=== PATIENT | female | born 1950 | race Caucasian/White ===

== ENCOUNTER 2021-02-13 19:54 | Emergency (ER) | payer OTHER ==
[~2021-02-13] VITALS: Ht 154.9 cm; Wt 62.6 kg
--- NOTE | ~2021-02-13 | EMS ---
[address] [address] EMS Patient Care Report Name: EDDIE FERRIS Room #: PRE M.R.#: [id number] Admission: Attend Phys: Discharge: Date of : 50 Report #: [id number] THIS REPORT FOR: //name// Report Transmitted: 02/13/2021 19:37 EMS Care Summary [facility] MED-ACT Incident [id number] @ 02/13/2021 19:15 Incident Location [address] [place] [address] [place] [address] Patient EDDIE FERRIS Female, 70 Years 1950 Patient Address [address] [address] Patient History None Reported, Patient Allergies No known allergies, Patient Medications None Reported, Chief Complaint Abdominal pain Disposition Transported No Lights/[place] Reason Heart Problems/AICD Transported To [facility] Narrative History- Pt is found sitting at the dining room table and is being evaluated by FD. Pt is alert and does not appear to be in any distress. Pt explains that she just got in from [place] yesterday and before dinner tonight she had a sudden onset of abdominal pain. This was followed by the pt becoming pale and [address] [address] EMS Patient Care Report Name: EDDIE FERRIS Room #: [facility] Dixon#: [id number] Admission: Attend Phys: Discharge: Date of : 50 Report #: [id number] diaphoretic and states that she felt "henson". Now the pt states that her abdominal pain is gone and she feels normal and has no complaints. Pt denies ever having chest pain, shortness of breath, nausea or vomiting. Treatment- Vitals. 12 lead. IV. Pt is transported to [facility] and moved to the bed by sheet drag. Report given to the RN. Initial Vitals @PTAMI Suspected: false @19:41P: 56,R: 16,BP: 114/67,SpO2: 96, @19:48P: 57,R: 16,BP: 104/66,SpO2: 96, @PTAP: 68,R: 16,BP: 83/57,Temp: 98F,Glucose: 149,CO: 1,SpO2: 97, @PTAP: 69,R: 16,BP: 88/58,Pain: 2/10,GCS: 15,SpO2: 99,Revised Trauma: 11, Assessments @19:47MENTAL:Person Oriented,Time Oriented,Place Oriented,Event Oriented,SKIN:HEENT:Head/Face: No Abnormalities,Eyes: No Abnormalities,Neck/Airway: No Abnormalities,LUNG SOUNDS:General: No Abnormalities,ABDOMEN:General: No Abnormalities,PELVIS//GI:EXTREMITIES:Left Arm: No Abnormalities,Right Arm: No Abnormalities,Left Leg: No Abnormalities,Right Leg: No Abnormalities,PULSE:Radial: 2+ Normal,NEURO:No Abnormalities, Impression Hypotension Procedures @HKZ25-Nvmo ECGResponse: UnchangedSucceeded@19:41Saline Lock 10cc (18 ga) Site: Antecubital-RightResponse: UnchangedSucceeded Timeline UNIT LEADER,12-Lead ECG,Response: UnchangedSucceeded, UNIT LEADER,BP: / M,PULSE: ,RR: R,SPO2: Ox,ETCO2: ,BG: ,PAIN: ,GCS: , UNIT LEADER,BP: 83/57 M,PULSE: 68,RR: 16 R,SPO2: 97 Ox,ETCO2: ,B,PAIN: ,GCS: , UNIT LEADER,BP: 88/58 M,PULSE: 69,RR: 16 R,SPO2: 99 Ox,ETCO2: ,BG: ,PAIN: 2,GCS: 15, 19:14,Call Received 19:14,Psap Call 19:15,Dispatched 19:16,En Route 19:28,On Scene 19:32,At Patient 19:41,Saline Lock 10cc 18 ga Site: Antecubital-Right,Response: UnchangedSucceeded, 19:41,BP: 114/67 M,PULSE: 56,RR: 16 R,SPO2: 96 Ox,ETCO2: ,BG: ,PAIN: ,GCS: , 19:41,Depart Scene 19:48,BP: 104/66 M,PULSE: 57,RR: 16 R,SPO2: 96 Ox,ETCO2: ,BG: ,PAIN: ,GCS: , [facility] [address] [place] [address] EMS Patient Care Report Name: DIMITRI FERRISLEE Room #: PRE ER M.R.#: [id number] Admission: Attend Phys: Discharge: Date of : 50 Report #: [id number] 19:52,At Destination 20:04,Call Closed Disclaimer v1.1 Copyright 2020 [employer] This EMS Care Summary contains data elements from the applicable legal record (which may be displayed differently). It is designed to provide pertinent information for the following purposes: continuity of care, clinical quality, and state data reporting. The complete legal record is available to ED staff and administrators of the receiving hospital in [employer]'s Patient Tracker. All data is provided "as is."
[2021-02-13 20:33] LABS: ABSOLUTE NEUTROPHILS 1.8 thou/uL (1.4-8.2); EOSINOPHILS 1.3 % (0.0-3.0); HEMATOCRIT 39.6 % (37.0-47.0); LYMPHOCYTES 37.3 % (24.0-44.0); MCH 30.7 pg (26.0-34.0); MCHC 32.9 g/dL (28.0-37.0); MCV 93.3 fL (80.0-100.0); PLATELET COUNT 222 thou/uL (150-400); POLYS 50.4 % (36.0-66.0); RBC 4.24 mil/uL (4.20-5.00); RDW 13.3 % (10.5-14.5); WBC 3.5 thou/uL (4.0-11.0)
[2021-02-13 20:40] LABS: CREATININE 1.2 mg/dL (0.6-1.0); POTASSIUM 4.4 mmol/L (3.5-5.1)
[2021-02-13 20:50] LABS: ALBUMIN 3.3 g/dL (3.4-5.0); TOTAL BILIRUBIN 0.5 mg/dL (0.2-1.0); TOTAL PROTEIN 6.1 g/dL (6.4-8.2)
[2021-02-13 23:52] VITALS: BP 111/60
[2021-02-14] LABS: URINE BILIRUBIN NEGATIVE (Negative); URINE BLOOD NEGATIVE (Negative); URINE CLARITY CLEAR; URINE COLOR YELLOW; URINE GLUCOSE-RANDOM* NEGATIVE (Negative); URINE KETONES NEGATIVE (Negative); URINE NITRITE-REFLEX NEGATIVE (Negative); URINE PROTEIN (DIPSTICK) NEGATIVE (Negative); URINE SPECIFIC GRAVITY <= 1.005 (1.005-1.035); URINE UROBILINOGEN 0.2 E.U./dl (0.2-1.0)
[2021-02-14 00:14] LABS: URINE LEUKOCYTES-REFLEX 2+ (Negative)
[2021-02-14 00:38] LABS: BACTERIA-REFLEX 1-9 Few /HPF (None Seen); CASTS None Seen /LPF (None Seen); CRYSTALS None Seen /LPF (None Seen); MUCUS 0-3 Light strn/LPF (None Seen); SQUAMOUS 0-3 Few /LPF (0-3); TRANSITIONAL EPITHEL CELL 0-3 Few /LPF (None Seen); URINE RBC None Seen /HPF (NONE SEEN); URINE WBC-REFLEX 6-15 Few /HPF (0-5)
--- NOTE | 2021-02-14 07:36 | EKG ---
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
== END 2021-02-13 23:45 | disposition home or self-care (01) ==
LOC: ER 19:54
PROVIDERS: Emergency Medicine
DX: R55 Syncope and collapse (principal); R10.11 Right upper quadrant pain